=== PATIENT | female | born 1980 | race Caucasian/White ===

== ENCOUNTER → 2022-10-15 11:01 | Outpatient (BNVA) | payer BC, MEDICAID, SELFPAY | PROVIDERS: Family Provider Nurse Practitioner Family; PCP Nurse Practitioner Family; Referring Provider Nurse Practitioner Family; Visit Provider Specialist | DX: M25.512 Pain in left shoulder (principal) | CPT/HCPCS: 73030; 99204 ==

== ENCOUNTER → 2024-02-01 14:34 | Outpatient (BNVA) | payer BC, MEDICAID, SELFPAY | PROVIDERS: Family Provider Nurse Practitioner Family; PCP Nurse Practitioner Family; Visit Provider Podiatrist Foot & Ankle Surgery | DX: S99.192D Other physeal fracture of left metatarsal, subsequent encounter for fracture with routine healing; X58.XXXD Exposure to other specified factors, subsequent encounter | CPT/HCPCS: 73630 ==

== ENCOUNTER → 2024-02-22 12:49 | Outpatient (BNVA) | payer BC, MEDICAID, SELFPAY | PROVIDERS: Family Provider Nurse Practitioner Family; PCP Nurse Practitioner Family; Visit Provider Podiatrist Foot & Ankle Surgery | DX: S99.192G Other physeal fracture of left metatarsal, subsequent encounter for fracture with delayed healing; S99.922D Unspecified injury of left foot, subsequent encounter; X58.XXXD Exposure to other specified factors, subsequent encounter | CPT/HCPCS: 73630 ==

== ENCOUNTER 2024-02-25 10:01 | Day surgery (SDC) | payer BC, MEDICAID, SELFPAY ==
[2024-02-25] VITALS (8 sets, daily range): BP systolic 105–119; BP diastolic 60–71; PULSE 70–88; RESP 14–18; TEMP -12.7–36.1; O2SAT 99–100; BMI 22.9
--- NOTE | 2024-02-25 10:46 | P.ANESASSM_ITS ---
Pre-Anesthetic Assessment Height/Weight: Height 5 ft 5 in Weight 138 lb Temp Pulse Resp BP Pulse Ox O2 Del Method 9.1 F L 82 18 116/71 100 Room Air 02/25/24 10:44 02/25/24 10:44 02/25/24 10:44 02/25/24 10:44 02/25/24 10:44 02/25/24 10:44 Preop Diagnosis: Left Lee fracture Operation Date: 02/25/24 12:00 Proposed Procedures p ORIF left fifth metatarsal fracture(Left) - Jered Syed DPM Was Beta Taina taken within 24 hours: N/A Was Clonidine taken within 24 hours: N/A Social No alcohol and No tobacco Exam alert, oriented x 3, clear to auscultation bilaterally and regular rate & rhythm Airway Submandibular: within normal limits Cervical ROM: within normal limits Mallampati: Class III Dentition: full Anesthetic Plan ASA status: 2 Anesthesia: MAC Other: No prior issues with anesthesia NPO since yesterday History of chronic migraines Denies any pulmonary or cardiac issues METs greater than 4 Plan for MAC anesthesia with local via surgeon Medications/Allergies Home Medications Medication Instructions Recorded Confirmed Last Taken Type amitriptyline 25 mg tablet 25 mg PO DAILY 01/14/24 02/24/24 02/23/24 History meloxicam 15 mg tablet 15 mg PO DAILY 01/14/24 02/24/24 02/23/24 History rizatriptan 10 mg tablet 10 mg PO PRN Migraine Headache 01/14/24 02/22/24 Unknown History hydrocodone 10 mg-acetaminophen 1 tab PO Q6H PRN pain 7 days #28 02/25/24 Unknown Rx 325 mg tablet tabs Allergies Allergy/AdvReac Type Severity Reaction Status Date / Time No Known Allergies Allergy Verified 02/22/24 12:47 [facility] Anesthesia Medical History No pertinent past medical history neghx: htn,dm,thyroid,dvt/pe PCP: Alexandra Ordoñez Surgical History Hx of eye surgery both eyes --- 5 or 6 years old H/O tubal ligation (~2010) Family History Grandmother Diabetes Paternal Stroke Paternal Father Hypertension Heart disease Hypercholesteremia Family/Other Stroke Paternal Aunt Grandfather Heart disease Maternal Other Family history of premature coronary artery disease Denies family history of Colon cancer Ovarian cancer Breast cancer Uterine cancer Thyroid disease Social History Smoking and tobacco/nicotine status: tobacco/nicotine user, details unknown (patient vapes) Substance/Drug Use: never Data Anesthesia Cardiac Studies: No Data to Display
[2024-02-25] MEDS: sodium chloride 0.9% 1,000 ML 30 ML IV (11:11)
--- NOTE | 2024-02-25 11:11 | W.PM.OPSUD ---
Surgery/Procedure H&P Update DATE OF PROCEDURE: February 25, 2024 DATE H&P PERFORMED: 02/22/24 H&P UPDATE INFORMATION: I have reviewed H&P completed within last 30 days, I have examined patient prior to procedure, No changes to prior documentation and H&P is in [facility] EMR on date indicated PREOP DIAGNOSIS: Left Lee fracture PLANNED PROCEDURE: Operation Date: 02/25/24 12:00 Proposed Procedures p ORIF left fifth metatarsal fracture(Left) - Jered Syed DPM
[2024-02-25] MEDS: gabapentin 300 mg Capsule PO (11:15)
[2024-02-25] MEDS: CELEcoxib 200 mg Capsule 400 MG PO (11:16)
[2024-02-25] MEDS: ceFAZolin 2,000 mg SDV 2000 MG IVP (11:45)
[2024-02-25] MEDS: BUPivacaine 0.5% INJ 30 mL XX (12:05)
[2024-02-25] MEDS: BUPivacaine liposome 13.3 mg/mL SDV 20 mL 266 MG INFILTRATI (12:06)
--- NOTE | 2024-02-25 12:18 | XR_ITS ---
WS: [id number] Left foot, C-arm fluoroscopy views, 02/25/2024 Clinical Data: OR PICS Comparison: Left foot, 02/22/2024 Findings: Dr. Syed repaired the fracture at the base of the left fifth metatarsal. XR/XR foot LT 2V [id number] Impression: Internal fixation of left fifth metatarsal fracture.
--- NOTE | 2024-02-25 12:24 | W.PM.BPON ---
Date of Procedure: 08/21/23 Surgeon: Jered Syed DPM Premix Operator Concentrate(s): Maria Elena Procedure(s) performed: Open reduction internal fixation left fifth metatarsal fracture Findings of the procedure(s): None Estimated blood loss: 1 cc Specimen(s) removed: None Post-operative diagnosis: Left Lee fracture
--- NOTE | 2024-02-25 12:25 | P.OP_ITS ---
Operative Report Date of procedure: February 25, 2024 Pre-op diagnosis: Closed fracture of base of fifth metatarsal bone of left foot at metaphyseal- diaphyseal junction with delayed healing, subsequent encounter S99.192G Post-op diagnosis: Closed fracture of base of fifth metatarsal bone of left foot at metaphyseal- diaphyseal junction with delayed healing, subsequent encounter S99.192G Procedure done: Open reduction internal fixation left fifth metatarsal fracture. CPT code 84113 Implants: Idalia 5.5 mm Lee screw by 40 mm in length 4-0 nylon Specimens removed/disposition: No specimens Pathology: No pathology Surgeon: Jered Syed DPM Field Service Technician: Maria Elena Estimated blood loss: 1 mL 13 minutes IV fluids: See intraoperative documentation Urine output: No urine output Complications: No complications Brief History: Ms. Fontaine is a new 44 year old female patient presenting to clinic for evaluation of left foot injury. DOI 01/12/24. Patient reports closing her blind while standing on couch, tripped over a toy rolling her left foot. Patient is NWB with cam boot to left foot and utilizing a knee scooter. X-ray left foot 3 views repeated at today's visit 01/12/2024 and there is no significant interval osseous healing appreciated at the Lee fracture left fifth metatarsal however alignment is comparable to previous x-ray taken 01/14/2024 without further displacement or angulation. Given the lack of bony healing and general distillery worker on exam patient would like to entertain surgical options. Will try to pry with her insurance and seek out availability op room for Thursday this week. I reviewed at length with the patient, the risks, potential complications, benefits, alternatives, expectations, and typical outcomes associated with the surgery. The risks and potential complications were explained in detail, including but not limited to infection, wound dehiscence or soft tissue complications, bleeding and hematoma, chronic edema, neuritis or nerve damage producing numbness or chronic pain, CRPS, failure to relieve pain or worsening pain, thick / painful / unsightly scar, limited motion / stiffness, malposition, delayed union, malunion, or nonunion, fracture, reaction to implants, anesthetic complications, venous thromboembolism, and deformity recurrence. I discussed the notion of no regrets with the patient as it pertains to complications and outcomes. The patient seemed to understand the nature of the proposed care and required convalescence. They asked appropriate questions, answered to their satisfaction. They are aware no guarantees can be made as to a satisfactory outcome and they understand there may be other possible unforeseen complications or outcomes not listed here that will be treated accordingly if they arise. There were no written or implied guarantees given to the patient. They gave informed consent to proceed. Procedure: Under mild sedation patient was brought to the operating room and positioned on the operating table in supine position. A timeout was performed. Anesthesia was then administered by the anesthesia service. Local anesthesia injected by myself consisting of 20 cc of 0.5% Marcaine plain in a reverse Melissa block fashion to the left foot followed by 20 cc of Exparel subcutaneously in a grid like fashion proximal to the operative site. Well-padded pneumatic tourniquet applied to the left ankle. The left lower extremity was then scrubbed, prepped and draped utilizing normal aseptic technique and the left foot and ankle were then exanguinated with an Esmarch bandage followed by inflation of the tourniquet to 250 mmHg. Attention was directed to the bony landmarks of lateral malleolus, calcaneal wall and fifth metatarsal base, these were palpated and marked out. A nitinol K wire was then placed from proximal to distal into the base of the left fifth metatarsal and driven distally maintaining position within the intramedullary canal noted to be excellent, next utilizing standard AO technique a Idalia 28 Lee precision screw 5.5 mm in diameter and 40 mm in length was utilized to fixate the fracture, threads were distal to the fracture site and engaged nicely within the internal medullary wall with excellent bony apposition and compression noted, head was not proud and did not violate the adjacent joint. The incision was then irrigated with copious amounts of sterile saline solution and closed with 4-0 nylon. AP, oblique and lateral views confirmed excellent placement of hardware and reduction of fracture. The incision was then dressed with Adaptic, sterile 4 x 4, Kerlix and Juancarlos wrap followed by application of a cam boot and tourniquet was then deflated and a prompt hyperemic response is noted to the distal digits of the left foot. Patient tolerated the procedure and anesthesia well and was transferred to the PACU with vital signs stable and vascular status intact. Following a period of postoperative monitoring she will be discharged home is to be nonweightbearing left foot, is to rest and elevate a nd remain immobilized with cam boot. Was given at home care instructions and scheduled follow-up.
--- NOTE | 2024-02-25 13:25 | ANE.PACU2 ---
Inpatient post-anesthesia follow up: Airway intact: Yes Vital signs: Temperature 97.0 F Pulse Rate 86 Respiratory Rate 18 Blood Pressure 118/68 Pulse Oximetry 99 Oxygen Delivery Me thod Room Air Oxygen Flow Rate 6 Fraction of Inspir ed Oxygen Hydration adequate: Yes Nausea and vomiting: No Pain level: 1 Mental status: Baseline
== END 2024-02-25 13:25 | disposition home or self-care (01) ==
PROVIDERS: Family Provider Nurse Practitioner Family; PCP Nurse Practitioner Family; Visit Provider Podiatrist Foot & Ankle Surgery
PROC: (CPT 28485; principal; 2024-02-25 12:00)
DX: S99.192G Other physeal fracture of left metatarsal, subsequent encounter for fracture with delayed healing (principal); W22.8XXD Striking against or struck by other objects, subsequent encounter; F17.200 Nicotine dependence, unspecified, uncomplicated
CPT/HCPCS: 28485; 73620; 76000; C1713; C9290; J0690; J2250; J2704; J3010; J3490; J7030

== ENCOUNTER → 2024-03-10 13:40 | Outpatient (BNVA) | payer BC, MEDICAID, SELFPAY | PROVIDERS: Family Provider Nurse Practitioner Family; PCP Nurse Practitioner Family; Visit Provider Podiatrist Foot & Ankle Surgery | DX: Z98.890 Other specified postprocedural states; S99.192D Other physeal fracture of left metatarsal, subsequent encounter for fracture with routine healing; X58.XXXD Exposure to other specified factors, subsequent encounter | CPT/HCPCS: 73630 ==

== ENCOUNTER → 2024-04-07 13:09 | Outpatient (BNVA) | payer BC, MEDICAID, SELFPAY | PROVIDERS: Family Provider Nurse Practitioner Family; PCP Nurse Practitioner Family; Visit Provider Podiatrist Foot & Ankle Surgery | DX: Z98.890 Other specified postprocedural states (principal); Z87.81 Personal history of (healed) traumatic fracture | CPT/HCPCS: 73630 ==

== ENCOUNTER → 2024-05-03 10:24 | Outpatient (BNVA) | payer BC, MEDICAID, SELFPAY | PROVIDERS: Family Provider Nurse Practitioner Family; PCP Nurse Practitioner Family; Visit Provider Podiatrist Foot & Ankle Surgery | DX: Z98.890 Other specified postprocedural states (principal) | CPT/HCPCS: 73630 ==